=== PATIENT | male | born 1985 | race Hispanic/Latino ===

== ENCOUNTER 2021-10-28 13:05 | Emergency (ER) | payer OTHER, SELFPAY ==
[2021-10-28] MEDS ORDERED: Boostrix 0.5 ML (Tdap) VIAL ONE (14:57)
== END 2021-10-28 15:21 | disposition home or self-care (01) ==
LOC: CSHERS 13:05
DX: S01.01XA Laceration without foreign body of scalp, initial encounter (principal); S01.81XA Laceration without foreign body of other part of head, initial encounter; W13.2XXA Fall from, out of or through roof, initial encounter; Y99.0 Civilian activity done for income or pay; Y92.89 Other specified places as the place of occurrence of the external cause
CPT/HCPCS: 12002; 70450; 90471; 90715